=== PATIENT | male | born 1965 | race Caucasian/White ===

== ENCOUNTER 2024-01-11 04:44 | Day surgery (SDC) | payer OTHER ==
[2024-01-08 15:12] VITALS: BMI 29.2
[~2024-01-11 04:44] MED LIST: LACTATED RINGERS SOLUTION 1,000 ML IV SCH; ONDANSETRON 4 MG/2 ML VIAL IVPUSH PRN; PROMETHAZINE HCL 25 MG/1 ML VIAL IVPB PRN; oxyCODONE HCL 5 MG TABLET PO PRN
[2024-01-11 08:48] VITALS: RESP 20; TEMP 97.3
[2024-01-11] MEDS ORDERED: ACETAMINOPHEN INJECTION 100 ML ONE (09:25)
[2024-01-11] MEDS ORDERED: SEVOFLURANE 250 ML BTL ONE (09:30)
[2024-01-11] MEDS ORDERED: DEXAMETHASONE SOD PHOSPHATE 4 MG/1 ML VIAL ONE (09:35)
[2024-01-11] MEDS ORDERED: PROPOFOL 40 ML ONE (09:35)
[2024-01-11] MEDS ORDERED: KETOROLAC TROMETHAMINE 30 MG/1 ML VIAL ONE (09:35)
[2024-01-11] MEDS ORDERED: LIDOCAINE HCL/PF 2% SDV 5ML VIAL ONE (09:35)
[2024-01-11] MEDS ORDERED: ONDANSETRON 4 MG/2 ML VIAL ONE (09:37)
[2024-01-11] MEDS ORDERED: ceFAZolin SODIUM 1 GM VIAL ONE (09:38)
[2024-01-11] MEDS ORDERED: MIDAZOLAM HCL 2 MG/2 ML SINGLE DOSE VIAL ONE (09:40)
[2024-01-11] MEDS ORDERED: LIDOCAINE HCL 2% (20ML MULTI-DOSE VIAL) ONE (09:52)
[2024-01-11] MEDS ORDERED: LIDOCAINE HCL 1%, 10 MG/ML (20ML VIAL) ONE (09:52)
[2024-01-11] MEDS ORDERED: BUPIVACAINE HCL/PF 0.5% (5MG/ML) 10 ML VIAL ONE (09:52)
[2024-01-11] MEDS: ceFAZolin SODIUM 1 GM VIAL IVPB ONE (10:10)
[2024-01-11] MEDS: LIDOCAINE HCL 2% (50ML VIAL) INF ONE ×2 (10:24)
[2024-01-11] MEDS: BUPIVACAINE HCL/PF 0.5% (5 MG/ML) 30 ML VIAL IJ ONE ×2 (10:24)
[2024-01-11 16:03] VITALS: BP 118/72; PULSE 61
== END 2024-01-11 13:40 | disposition home or self-care (01) ==
LOC: JASU-SURG 04:44
PROVIDERS: ATTEND Urology
PROC: 0VBQ0ZZ Excision of Bilateral Vas Deferens, Open Approach (ICD-10-PCS; principal; 2024-01-11 09:45)
DX: Z30.2 Encounter for sterilization (principal)
CPT/HCPCS: 88302-TC; 94760; J0131